=== PATIENT | female | born 1985 | race Caucasian/White ===

== ENCOUNTER 2022-11-20 13:15 | Emergency (ER) | payer OTHER ==
[~2022-11-20] VITALS: Ht 170.2 cm; Wt 74.8 kg
[2022-11-20 13:15] VITALS: BP_SYST 118
[2022-11-20] MEDS ORDERED: MORPHINE 4 MG INJ. 4 MG/ML VIAL IM ONE (14:15)
[2022-11-20] MEDS ORDERED: TRAM50TA2 PO (14:27)
[2022-11-20 14:55] VITALS: BP_SYST 125
== END 2022-11-20 14:55 | disposition home or self-care (01) ==
LOC: SED 13:15
DX: S60.222A Contusion of left hand, initial encounter (principal); R60.0 Localized edema; Z88.8 Allergy status to other drugs, medicaments and biological substances; Z79.899 Other long term (current) drug therapy; W23.1XXA Caught, crushed, jammed, or pinched between stationary objects, initial encounter; Y93.89 Activity, other specified; Y92.89 Other specified places as the place of occurrence of the external cause; Y99.8 Other external cause status
CPT/HCPCS: 99284; 73110; 73130; 29125; 96372; J2270

== ENCOUNTER 2023-01-17 09:54 | Emergency (ER) | payer OTHER ==
[~2023-01-17] VITALS: Ht 170.2 cm; Wt 72.6 kg
[~2023-01-17 09:54] MED LIST: TRAM50TA2 PO
[2023-01-17 10:08] VITALS: BP_SYST 129
[2023-01-17 10:59] LABS: BASOPHILS # (AUTO) 0.1 K/uL (0.0-0.2); BASOPHILS % (AUTO) 1.1 % (0.0-2.0); EOSINOPHILS # (AUTO) 0.1 K/uL (0.0-0.4); EOSINOPHILS % (AUTO) 1.7 % (0.0-4.0); HEMATOCRIT 36.2 % (36-48); HEMOGLOBIN 11.9 g/dL (12.0-16.0); LYMPHOCYTES # (AUTO) 1.8 K/uL (1.0-5.5); MEAN CORPUSCULAR HEMOGLOBIN 27 pg (27-31); MEAN CORPUSCULAR HGB CONC 33 % (32-36); MEAN CORPUSCULAR VOLUME 82 fL (79.0-98.0); MONOCYTES # (AUTO) 0.5 K/uL (0.0-1.0); NEUTROPHILS # (AUTO) 4.1 K/uL (1.8-7.7); NEUTROPHILS % (AUTO) 62.2 % (40.0-70.0); PLATELET COUNT (AUTO) 384 K/uL (130-430); RED BLOOD CELL COUNT(AUTO) 4.44 MIL/uL (4.2-6.2); RED CELL DISTRIBUTION WIDTH 14.3 % (9.0-15.0); WHITE BLOOD COUNT (AUTO) 6.5 K/uL (4.8-10.8)
[2023-01-17 11:09] LABS: ANION GAP 7 (5-15); CALCIUM 8.7 mg/dL (8.4-11.0); CHLORIDE 105 mmol/L (98-107); CREATININE 1.04 mg/dL (0.55-1.30); GFR AFRICAN AMERICAN 77 mL/min (>90); GLUCOSE 90 mg/dL (70-99); UREA NITROGEN, BLOOD 20 mg/dL (8-21)
[2023-01-17 11:13] LABS: ALANINE AMINOTRANSFERASE 30 U/L (12-78); ALBUMIN 4.1 g/dL (3.4-4.8); AMYLASE 84 U/L (0-100); ASPARTATE AMINOTRANSFERASE 17 U/L (10-37); LIPASE 157 U/L (73-393); TOTAL BILIRUBIN 0.3 mg/dL (0.0-1.0)
[2023-01-17 11:17] LABS: C-REACTIVE PROTEIN QUANT < 0.2 mg/dL (0-0.5)
[2023-01-17 11:52] LABS: BILIRUBIN,URINE NEGATIVE (NEGATIVE); BLOOD, URINE 1+ (NEGATIVE); CLARITY/URINE CLEAR (CLEAR); COLOR,URINE YELLOW (YELLOW); GLUCOSE,URINE NEGATIVE (NEGATIVE); KETONES,URINE NEGATIVE (NEGATIVE); LEUKOCYTE ESTERASE ,URINE 2+ (NEGATIVE); NITRITE, URINE POSITIVE (NEGATIVE); PH,URINE 7.5 (5.0-8.0); PROTEIN URINE NEGATIVE (NEGATIVE); UROBILINOGEN,URINE 0.2 (0.2-1.0)
[2023-01-17 12:04] LABS: BACTERIA,URINE FEW /HPF (None Seen); TRICHOMONAS,URINE None Seen /HPF (None Seen); TRIPLE PHOSPHATE CRYSTAL,UR 0-10 /HPF (None Seen); YEAST,URINE None Seen /HPF (None Seen)
[2023-01-17] MEDS ORDERED: NITR-85 PO (12:59)
[2023-01-17] MEDS ORDERED: HYDROcodone/ACETAMIN 10-325 MG TAB PO ONE (13:00)
[2023-01-17] MEDS ORDERED: TRAM50TA2 PO (13:03)
[2023-01-17 13:24] VITALS: BP_SYST 136
== END 2023-01-17 13:45 | disposition home or self-care (01) ==
LOC: SED 09:54
DX: N39.0 Urinary tract infection, site not specified (principal); Z88.8 Allergy status to other drugs, medicaments and biological substances; Z79.899 Other long term (current) drug therapy
CPT/HCPCS: 36415; 76376; 80053; 81000; 81025; 82150; 83605; 83690; 84703; 85025; 86140; 87086; 99284

== ENCOUNTER 2023-01-27 14:49 | Inpatient (IN) | payer OTHER ==
[~2023-01-27] VITALS: Ht 170.2 cm; Wt 71.7 kg
[~2023-01-27 14:49] MED LIST changes: +NITR-85 PO
[2023-01-27 15:04] VITALS: BP_SYST 133
--- NOTE | 2023-01-27 15:09 | NUR ---
RN WAS INFORMED THAT PT COLLAPSED AT WINDOW WHEN REGISTERING. PT IMMEDIATELY ASSISTED, PT AWAKE A/O X4 AND VERBALLY RESPONSIVE. PER PT, REPORTS SHE VASO VAGALS WHEN SHES IN PAIN. PT ASSISTED ONTO GURNEY, BREATHING EVEN AND UNLABORED. NO ACUTE DISTRESS NOTED. MD SANTIAGO MADE AWARE
--- NOTE | 2023-01-27 15:12 | NUR ---
PT IN HALLWAY 2. REPORT GIVEN TO ALESSIA GALAN, SAFETY MEASURES IN PLACE
[2023-01-27] MEDS ORDERED: NACL 0.9% 1,000 ML IV ONE (15:15)
[2023-01-27] MEDS ORDERED: MORPHINE 4 MG INJ. 4 MG/ML VIAL IVP ONE ×2 (15:15→18:15)
[2023-01-27 16:18] LABS: BASOPHILS # (AUTO) 0.1 K/uL (0.0-0.2); BASOPHILS % (AUTO) 0.8 % (0.0-2.0); EOSINOPHILS # (AUTO) 0.1 K/uL (0.0-0.4); EOSINOPHILS % (AUTO) 1.6 % (0.0-4.0); HEMATOCRIT 35.4 % (36-48); HEMOGLOBIN 11.8 g/dL (12.0-16.0); LYMPHOCYTES # (AUTO) 1.8 K/uL (1.0-5.5); LYMPHOCYTES % (AUTO) 27.8 % (20.5-51.5); MEAN CORPUSCULAR HEMOGLOBIN 27 pg (27-31); MEAN CORPUSCULAR HGB CONC 33 % (32-36); MEAN CORPUSCULAR VOLUME 81 fL (79.0-98.0); MONOCYTES # (AUTO) 0.5 K/uL (0.0-1.0); MONOCYTES % (AUTO) 7.9 % (1.7-9.3); NEUTROPHILS % (AUTO) 61.9 % (40.0-70.0); PLATELET COUNT (AUTO) 411 K/uL (130-430); RED BLOOD CELL COUNT(AUTO) 4.35 MIL/uL (4.2-6.2); RED CELL DISTRIBUTION WIDTH 13.7 % (9.0-15.0); WHITE BLOOD COUNT (AUTO) 6.5 K/uL (4.8-10.8)
--- NOTE | 2023-01-27 16:20 | NUR ---
Received patient in room 2 and recieved report from Jamie at this time.
[2023-01-27 17:03] LABS: BILIRUBIN,URINE NEGATIVE (NEGATIVE); COLOR,URINE YELLOW (YELLOW); GLUCOSE,URINE NEGATIVE (NEGATIVE); KETONES,URINE NEGATIVE (NEGATIVE); NITRITE, URINE POSITIVE (NEGATIVE); PROTEIN URINE NEGATIVE (NEGATIVE); UROBILINOGEN,URINE 0.2 (0.2-1.0)
[2023-01-27 17:10] LABS: ALBUMIN 4.2 g/dL (3.4-4.8); CALCIUM 8.9 mg/dL (8.4-11.0); CREATININE 1.01 mg/dL (0.55-1.30); TOTAL BILIRUBIN 0.4 mg/dL (0.0-1.0)
[2023-01-27 17:10] LABS: BLOOD, URINE TRACE (NEGATIVE); CLARITY/URINE HAZY (CLEAR)
[2023-01-27 17:11] LABS: BACTERIA,URINE FEW /HPF (None Seen); LEUKOCYTE ESTERASE ,URINE TRACE (NEGATIVE); RBC,URINE NONE SEEN /HPF (0-3)
[2023-01-27 17:12] LABS: MUCUS,URINE None Seen /LPF (None Seen); TRIPLE PHOSPHATE CRYSTAL,UR 30-50 /HPF (None Seen)
--- NOTE | 2023-01-27 18:06 | NUR ---
Patient needed to have duncan catheter removed and replaced but the RN's that removed it could not replace it. Patient has tried to replace it herself as she self caths at home. Advised MD that patient is in extreme pain; he explain he would order more pain medicine and would have the Urologist come in and consult on the case urgently.
[2023-01-27] MEDS ORDERED: ZOLPIDEM TARTRATE 5 MG TABLET PO PRN (20:00)
[2023-01-27] MEDS ORDERED: MUPIROCIN 2% TOPICAL OINTMENT 22 GM NS PRN (20:00)
[2023-01-27] MEDS ORDERED: MORPHINE 2 MG/ML INJ. SYRINGE IVP PRN (20:00)
[2023-01-27] MEDS ORDERED: ACETAMINOPHEN 325 MG TABLET PO PRN ×2 (20:00→20:15)
[2023-01-27] MEDS ORDERED: POTASSIUM CHLORIDE 20 MEQ TAB.PRT.SR PO PRN (20:00)
[2023-01-27] MEDS ORDERED: MAGNESIUM SULFATE 50 ML IV PRN (20:00)
[2023-01-27] MEDS ORDERED: DOCUSATE SODIUM 100 MG CAPSULE PO PRN (20:00)
[2023-01-27] MEDS ORDERED: LORazepam 2 MG/ML VIAL IVP PRN (20:00)
--- NOTE | 2023-01-27 20:00 | NUR ---
FIRST CONTACT WITH PT. ASSESSMENT COMPLETED. AWAITING ADDITIONAL EVAL AND ORDERS.
--- NOTE | 2023-01-27 20:45 | NUR ---
BLADDER SCAN COMPLETED AND RESULTS WERE 300ML. INFORMED. PT ALSO MEDICATED FOR SEVERE PAIN AND ITCHING
[2023-01-27] MEDS ORDERED: DIPHENHYDRAMINE INJ 50 MG/ML VIAL IVP ONE (21:00)
[2023-01-27] MEDS ORDERED: DIPHENHYDRAMINE INJ 50 MG/ML VIAL ONE (21:01)
[2023-01-27] MEDS ORDERED: MORPHINE 2 MG/ML INJ. SYRINGE ONE (21:03)
[2023-01-27] MEDS: MORPHINE 2 MG/ML INJ. SYRINGE IVP PRN (21:15)
--- NOTE | 2023-01-27 21:24 | NUR ---
Patient will be admitted to care of [facility]. Admitted to MED SURGE unit. Will go to room 134B . Belongings list completed. Complete and up to date summary report printed. SBAR report to be given at bedside with opportunity for questions.
[2023-01-27 23:01] VITALS: BP_SYST 118
[2023-01-28] VITALS: BP_SYST 115
[2023-01-28] MEDS: MORPHINE 2 MG/ML INJ. SYRINGE IVP PRN ×2 (01:32→05:36)
--- NOTE | 2023-01-28 02:10 | NUR ---
Itching, pain called and s/w Dr. Rodgers. Informed patient reports no improvement in pain, it is severe. Dr. Rodgers is aware and knows she has Morphie PRN ordered, also states that patient didn't have surgical procedure and can't order Dilaudid. Patient also reporting itching and received medication order for PO Benadryl 50mg Q6P itching; He will see patient in am. AARONB
[2023-01-28] MEDS ORDERED: DIPHENHYDRAMINE HCL 50 MG CAPSULE PO PRN (02:30)
--- NOTE | 2023-01-28 05:43 | NUR ---
c/o pain, Morphine Reporting severe pain 9/10 to abdomen and states has not slept d/t pain. Administered morphine as ordered
[2023-01-28 07:34] LABS: BASOPHILS # (AUTO) 0.1 K/uL (0.0-0.2); BASOPHILS % (AUTO) 1.3 % (0.0-2.0); EOSINOPHILS # (AUTO) 0.1 K/uL (0.0-0.4); EOSINOPHILS % (AUTO) 1.5 % (0.0-4.0); HEMATOCRIT 34.7 % (36-48); HEMOGLOBIN 11.3 g/dL (12.0-16.0); LYMPHOCYTES # (AUTO) 2.7 K/uL (1.0-5.5); LYMPHOCYTES % (AUTO) 36.6 % (20.5-51.5); MEAN CORPUSCULAR HEMOGLOBIN 27 pg (27-31); MEAN CORPUSCULAR HGB CONC 33 % (32-36); MEAN CORPUSCULAR VOLUME 82 fL (79.0-98.0); MONOCYTES # (AUTO) 0.8 K/uL (0.0-1.0); MONOCYTES % (AUTO) 10.6 % (1.7-9.3); NEUTROPHILS # (AUTO) 3.7 K/uL (1.8-7.7); PLATELET COUNT (AUTO) 384 K/uL (130-430); RED BLOOD CELL COUNT(AUTO) 4.24 MIL/uL (4.2-6.2); RED CELL DISTRIBUTION WIDTH 14.2 % (9.0-15.0); WHITE BLOOD COUNT (AUTO) 7.5 K/uL (4.8-10.8)
--- NOTE | 2023-01-28 07:40 | NUR ---
Morning Rounds: Patient lying in bed.Iv at left forearm g#20, saline lock. Awake,alert and oriented x4.Patient c/o urethral pain,offered pain medications.Stated that Iv Morphine does not help.Md was informed regarding this matter.Patient agreed to have a duncan insertion only after speaking to the doctor. Ice pack given per patient's request. Call light with in reach. Safety measures rendered. Not in any distress.
[2023-01-28 07:41] LABS: CALCIUM 8.1 mg/dL (8.4-11.0); CREATININE 1.08 mg/dL (0.55-1.30)
[2023-01-28 08:00] VITALS: BP_SYST 120
[2023-01-28] MEDS ORDERED: cefTRIAXone 1 GM IVPB PREMIX 50 ML IV SCH (09:00)
--- NOTE | 2023-01-28 09:02 | NUR ---
PEREZ CATHETER INSERTION PATIENT IN THE BED , APPEARS ANXIOUS, STATED LAST SELF CATHETERIZATION WAS AFTER MIDNIGHT THIS MORNING. PATIENT STATED THAT SHE HAD DIFFICULTY WITH LAST SELF DUE TO RESISTANCE. PATIENT AGREED TO HAVE PEREZ CATHETER INSERTED, THEN SHE WILL HAVE HER PAIN MEDICATIONS AFTER. DR PERAZA WAS IN THE ROOM WITH THE PATIENT EARLIER. WITH CATHETER KIT AND PAIN MEDICATION MORPHINE 2 MG IV AND BENADRYL 50 MG TAB IN HAND, THIS [employer] DESIGNER EXPLAINED PROCEDURE AND PAIN MEDICATION, AFTER TELLING HER THAT SHE IS GETTING MORPHINE, SHE REFUSED PEREZ CATHETER INSERTION. EDUCATED PATIENT
--- NOTE | 2023-01-28 09:35 | NUR ---
AMA: Patient left against medical advise with out signing the form. And patient left the hospital with her iv on her left arm.
--- NOTE | 2023-01-28 09:40 | NUR ---
Called [facility] to have someone come make a report due to patient leaving with an IV in her arm.
--- NOTE | 2023-01-28 10:08 | NUR ---
[place] : [facility] officer came and reported the incident that patient left without the iv access taken out.
== END 2023-01-28 09:35 | disposition left against medical advice (07) | DRG 690 ==
LOC: SED 14:49 → SMU 19:18
PROVIDERS: ADMIT General Practice; ATTEND General Practice
DX: N39.0 Urinary tract infection, site not specified (principal); F11.20 Opioid dependence, uncomplicated; R33.9 Retention of urine, unspecified; Z53.29 Procedure and treatment not carried out because of patient's decision for other reasons; Z88.8 Allergy status to other drugs, medicaments and biological substances; Z90.49 Acquired absence of other specified parts of digestive tract
CPT/HCPCS: 36415; 76376; 80048; 80053; 81000; 83037; 83605; 83735; 84703; 85025; 87040; 87086; 99285; J0696; J1200; J2060; J2270; Q0163